=== PATIENT | female | born 1935 | race African-American/Black ===

== ENCOUNTER 2019-03-19 09:21 | Day surgery (SDC) | payer MEDICARE, BC ==
[~2019-03-19] VITALS: Ht 160 cm; Wt 72.6 kg
[~2019-03-19 09:21] MED LIST: AMLO2.5T45 PO; ASPI-1393 PO; BALANCED SALT IRRIG SOLN COMB1 500ML OP ONE; CLOP75TA33; LATA2.5D2 BOTHEYE; PITA2TAB2; TRAM50TA3 PO; VALS80TA30 PO
[2019-03-19] MEDS ORDERED: LACTATED RINGERS 1,000 ML IV SCH (10:00)
[2019-03-19] MEDS ORDERED: TROPICAMIDE 1% OPHTH DROPS 15ML LEFTEYE ONE (10:00)
[2019-03-19] MEDS ORDERED: PHENYLEPHRINE HCL 10% OPHTH DROPS 5ML LEFTEYE ONE (10:00)
[2019-03-19] MEDS ORDERED: CYCLOPENTOLATE HCL 1% OPHTH DROPS 2ML LEFTEYE ONE (10:00)
[2019-03-19] MEDS ORDERED: HYALURONATE SODIUM 14 MG/ML 0.85ML SYRINGE IO ONE (10:03)
[2019-03-19] MEDS ORDERED: EVOL140P SQ (13:14)
[2019-03-19] MEDS ORDERED: MIDAZOLAM HCL 2 MG/2 ML VIAL ONE ×2 (13:18→14:10)
[2019-03-19] MEDS ORDERED: DIPHENHYDRAMINE 50MG/ML VIAL ONE ×2 (13:18→14:10)
[2019-03-19] MEDS ORDERED: FENTANYL CITRATE/PF 50MCG/ML 2ML VIAL ONE ×2 (13:18→14:10)
[2019-03-19] MEDS ORDERED: HYDRALAZINE 20MG/ML VIAL ONE (13:28)
[2019-03-19] MEDS ORDERED: HYDROMORPHONE HCL/PF 2MG/ML CPJ IV PRN (14:15)
[2019-03-19] MEDS ORDERED: PREDNISOLONE ACETATE 1% OPHTH DROPS 1ML ONE (16:23)
[2019-03-19] MEDS ORDERED: CIPROFLOXACIN 0.3% OPHTH SOLN 2.5ML ONE (16:23)
[2019-03-19] MEDS ORDERED: BALANCED SALT IRRIG SOLN 15ML ONE (16:23)
[2019-03-19] MEDS ORDERED: LIDOCAINE HCL/PF 2% 20 MG/ML 10ML VIAL ONE (16:23)
[2019-03-19] MEDS ORDERED: TETRACAINE 0.5% OPHTH DROPS 4ML ONE (16:23)
== END 2019-03-19 16:00 | disposition home or self-care (01) ==
LOC: OR 09:21
PROVIDERS: ATTEND Ophthalmology
DX: H25.012 Cortical age-related cataract, left eye (principal); H10.33 Unspecified acute conjunctivitis, bilateral; H10.45 Other chronic allergic conjunctivitis; H04.123 Dry eye syndrome of bilateral lacrimal glands; H40.1130 Primary open-angle glaucoma, bilateral, stage unspecified; H00.15 Chalazion left lower eyelid; I10 Essential (primary) hypertension; I25.10 Atherosclerotic heart disease of native coronary artery without angina pectoris; E78.5 Hyperlipidemia, unspecified; Z79.82 Long term (current) use of aspirin; Z88.8 Allergy status to other drugs, medicaments and biological substances; Z79.899 Other long term (current) drug therapy; Z88.6 Allergy status to analgesic agent; Z82.49 Family history of ischemic heart disease and other diseases of the circulatory system; Z95.0 Presence of cardiac pacemaker; Z96.652 Presence of left artificial knee joint
CPT/HCPCS: 66984; J0360; J1200; J2250; J3010; J3490; V2632

== ENCOUNTER → 2020-07-18 | Day surgery (SDC) | payer MEDICARE, BC ==
[~2020-07-18] VITALS: Ht 160 cm; Wt 73.0 kg
[~2020-07-18] MED LIST changes: +ACETAZOLAMIDE SODIUM 500MG/VIAL IV ONE; +AMLODIPINE 5MG TABLET PO NR; -ASPI-1393 PO; +ASPI-1497 PO; -BALANCED SALT IRRIG SOLN COMB1 500ML OP ONE; +CEFAZOLIN SODIUM 1000MG/VIAL ONE; +EVOL140P3 SQ; +HYALURONATE SODIUM 10 MG/ML 0.55ML SYRINGE IO ONE; +HYDROMORPHONE HCL/PF 2MG/ML (OR) ONE; +HYDROMORPHONE HCL/PF 2MG/ML CPJ IV PRN; +LABETALOL 5MG/ML SYR 20 MG/4 ML SYRINGE IV PRN; +LATA2.5D14 BOTHEYE; -LATA2.5D2 BOTHEYE; +LIDOCAINE HCL/PF 1% 10 MG/ML 5ML VIAL ONE; +MEPERIDINE HCL/PF 25MG/ML CPJ IV PRN; +ONDANSETRON HCL 4MG/2ML INJ IV PRN; +PROPOFOL 200MG/20ML VIAL IV ONE; -VALS80TA30 PO; +VANCOMYCIN OP SCH; +[UNRECOGNIZED DRUG - REMARK] OP ONE
[2020-07-18 07:17] LABS: BASOPHILS % 0.5 % (0.0-2.0); EOSINOPHILS % 2.9 % (0.0-5.0); HEMATOCRIT. 37.8 % (36.0-48.0); HEMOGLOBIN. 12.7 g/dL (12.0-16.0); MEAN CORPUSCULAR HEMOGLOBIN 31.8 pg (28.0-32.0); MEAN CORPUSCULAR VOLUME 94.3 fL (81.0-99.0); MEAN PLATELET VOLUME 8.9 fl (7.4-10.4); MONOCYTES % 10.5 % (2.0-8.0); NEUTROPHILS % 61.1 % (40.0-76.0); PLATELET 173 x1000/uL (130-400); RED BLOOD CELL COUNT 4.01 mill/uL (4.2-5.4); RED CELL DISTRIBUTION WIDTH 12.9 % (11.6-14.6)
[2020-07-18 07:22] LABS: CHLORIDE 108 mEq/L (98-107)
[2020-07-18 07:25] LABS: INR 1.1; PROTHROMBIN TIME 11.4 sec (9.6-11.0)
[2020-07-18 07:30] VITALS: BP 148/89
== END | disposition home or self-care (01) ==
LOC: ER 05:56 → OR 08:35 → CANBEDREQ 16:48
PROVIDERS: ATTEND Ophthalmology
DX: H53.8 Other visual disturbances (principal); T81.30XA Disruption of wound, unspecified, initial encounter; Z79.82 Long term (current) use of aspirin; Z79.899 Other long term (current) drug therapy; Z98.890 Other specified postprocedural states; Z94.7 Corneal transplant status; Z88.1 Allergy status to other antibiotic agents
CPT/HCPCS: 12020; 36415; 80053; 85025; 85610; 87426; 93005; J0690; J1120; J1170; J2704; J3490

== ENCOUNTER → 2020-09-07 | Outpatient (CLI) | payer MEDICARE, BC ==
[~2020-09-07] MED LIST changes: +ACET250T3 PO; -ACETAZOLAMIDE SODIUM 500MG/VIAL IV ONE; +AMLO5TAB88 PO; -AMLODIPINE 5MG TABLET PO NR; -CEFAZOLIN SODIUM 1000MG/VIAL ONE; +CHOL500010 PO; +CLIN150C15 PO; +EZET10TA13 PO; -HYALURONATE SODIUM 10 MG/ML 0.55ML SYRINGE IO ONE; -HYDROMORPHONE HCL/PF 2MG/ML (OR) ONE; -HYDROMORPHONE HCL/PF 2MG/ML CPJ IV PRN; -LABETALOL 5MG/ML SYR 20 MG/4 ML SYRINGE IV PRN; -LIDOCAINE HCL/PF 1% 10 MG/ML 5ML VIAL ONE; -MEPERIDINE HCL/PF 25MG/ML CPJ IV PRN; +NEOMYCIN LEFTEYE; +OFLO5DRO LEFTEYE; -ONDANSETRON HCL 4MG/2ML INJ IV PRN; +PITA4TAB2 PO; +POLYMYXIN B LEFTEYE; +PRED5DRO22 LEFTEYE; -PROPOFOL 200MG/20ML VIAL IV ONE; -VANCOMYCIN OP SCH; -[UNRECOGNIZED DRUG - REMARK] OP ONE
== END | disposition home or self-care (01) ==
LOC: LAB 10:07
PROVIDERS: ATTEND Ophthalmology
DX: Z01.812 Encounter for preprocedural laboratory examination (principal); Z20.822 Contact with and (suspected) exposure to COVID-19
CPT/HCPCS: 87426

== ENCOUNTER → 2020-09-08 | Day surgery (SDC) | payer MEDICARE, BC ==
[~2020-09-08] VITALS: Ht 160 cm; Wt 72.1 kg
[~2020-09-08] MED LIST changes: +BALANCED SALT IRRIG SOLN 15ML ONE; +BUPIVACAINE HCL/PF 0.75% (7.5MG/ML) 10ML ONE; +CIPROFLOXACIN 0.3% OPHTH SOLN 2.5ML ONE; +DIPHENHYDRAMINE 50MG/ML VIAL ONE; +FENTANYL CITRATE/PF 50MCG/ML 2ML VIAL ONE; +HYDROMORPHONE HCL/PF 2MG/ML CPJ IV PRN; +LACTATED RINGERS 1,000 ML IV ONE; +LIDOCAINE HCL 2%/EPINEPHRINE 1:100,000 20 ML VIAL INFIL ONE; +MIDAZOLAM HCL 2 MG/2 ML VIAL ONE; +NEO/POLYMYX B SULF/DEXAMETH OPHTH OINT 3.5GM ONE; +PREDNISOLONE ACETATE 1% OPHTH DROPS 5ML ONE; +TETRACAINE 0.5% OPHTH DROPS 4ML ONE
== END | disposition home or self-care (01) ==
LOC: OR 09:17
PROVIDERS: ATTEND Ophthalmology
DX: H02.105 Unspecified ectropion of left lower eyelid (principal); I10 Essential (primary) hypertension; E78.00 Pure hypercholesterolemia, unspecified; Z79.82 Long term (current) use of aspirin; Z79.899 Other long term (current) drug therapy; Z88.1 Allergy status to other antibiotic agents; Z98.890 Other specified postprocedural states; Z82.49 Family history of ischemic heart disease and other diseases of the circulatory system
CPT/HCPCS: 67917; J1200; J2250; J3010; J3490

== ENCOUNTER → 2021-05-13 | Outpatient (CLI) | payer MEDICARE, BC ==
[~2021-05-13] MED LIST changes: -AMLO2.5T45 PO; -BALANCED SALT IRRIG SOLN 15ML ONE; -BUPIVACAINE HCL/PF 0.75% (7.5MG/ML) 10ML ONE; -CIPROFLOXACIN 0.3% OPHTH SOLN 2.5ML ONE; +CLIN-116 PO; -CLIN150C15 PO; -CLOP75TA33; -DIPHENHYDRAMINE 50MG/ML VIAL ONE; -FENTANYL CITRATE/PF 50MCG/ML 2ML VIAL ONE; -HYDROMORPHONE HCL/PF 2MG/ML CPJ IV PRN; -LACTATED RINGERS 1,000 ML IV ONE; -LATA2.5D14 BOTHEYE; -LIDOCAINE HCL 2%/EPINEPHRINE 1:100,000 20 ML VIAL INFIL ONE; -MIDAZOLAM HCL 2 MG/2 ML VIAL ONE; -NEO/POLYMYX B SULF/DEXAMETH OPHTH OINT 3.5GM ONE; -PITA2TAB2; -PREDNISOLONE ACETATE 1% OPHTH DROPS 5ML ONE; -TETRACAINE 0.5% OPHTH DROPS 4ML ONE; -TRAM50TA3 PO
== END | disposition home or self-care (01) ==
LOC: RAD 10:34
PROVIDERS: ATTEND Specialist
DX: R05.9 Cough, unspecified (principal); M47.819 Spondylosis without myelopathy or radiculopathy, site unspecified
CPT/HCPCS: 71046